=== PATIENT | female | born 1950 | race Hispanic/Latino ===

== ENCOUNTER 2017-02-25 15:12 | Emergency (ER) | payer MEDICARE, MEDICAID ==
[2017-02-25 15:46] VITALS: TEMP 97.9
--- NOTE | 2017-02-25 16:02 | RAD ---
KUB one view INDICATION: Right abdominal and flank pain IMPRESSION: Extensive stool throughout the colon suggesting constipation. Scattered small calcifications in the pelvis likely phleboliths and bowel related. No definitive ureteral calculus. No definite calculi over the kidneys. Bones are osteopenic. No evidence of mechanical bowel obstruction. Electronically signed by: Sulaiman Almonte MD 02/25/2017 4:00 PM CDT
[2017-02-25] MEDS ORDERED: MAGNESIUM HYDROXIDE 30 ML UD PO ONE (16:52)
[2017-02-25] MEDS ORDERED: SODIUM CHLORIDE 0.9% 1000ML 1,000 ML IVS ONE (17:09)
[2017-02-25 17:43] VITALS: O2SAT 97
--- NOTE | 2017-02-25 18:05 | ED.PDOC ---
History of Present Illness - General Chief Complaint: Abdominal Pain Stated Complaint: R flank pain Time Seen by Provider: 02/25/17 15:22 Source: patient Exam Limitations: no limitations - History of Present Illness Initial Comments: the patient is a 66-year-old female presenting to the emergency room secondary toright mid to upper abdominal painstarting this morning. It has been intermittent in nature. Mild nausea but no vomiting. No urinary symptoms. No flank pain. No chest pain. She has had a history of constipation. She has also had a history of renal insufficiency and has had a kidney stone before. The pain is not made worse significantly with palpation. It does come and go somewhat random. No radiation to the groin. No fevers. No frequency. No dysuria.of note, the pain is currently significantly less now than it was earlier today. Timing/Duration: unsure Severity: moderate Improving Factors: nothing Worsening Factors: nothing Associated Symptoms: loss of appetite Allergies/Adverse Reactions: Allergies NO KNOWN ALLERGY Allergy (Verified 02/25/17 15:34) Home Medications: Ambulatory Orders hydrALAZINE HCl [(None)] 50 mg PO DAILY 02/25/17 Review of Systems - Review of Systems Constitutional: States: no symptoms reported EENTM: States: no symptoms reported Respiratory: States: no symptoms reported Cardiology: States: no symptoms reported Gastrointestinal/Abdominal: States: constipation, nausea Genitourinary: States: no symptoms reported Musculoskeletal: States: no symptoms reported Skin: States: no symptoms reported Neurological: States: no symptoms reported Endocrine: States: no symptoms reported All other Systems: No Change from Baseline Past Medical History (General) - Patient Medical History Hx Stroke: No Hx Congestive Heart Failure: No Hx Hypertension: Yes Hx Diabetes: Yes Hx Renal Disease: Yes - 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 a medical pathology teacher in [place] Surgical History: other - Vaccination History Hx Influenza Vaccination: Yes - 2015 Hx Pneumococcal Vaccination: Yes - 2014 - Social History Hx Tobacco Use: No Hx Alcohol Use: No Family Medical History - Family History Mother Family History: No Known Living Status: Physical Exam - Physical Exam General Appearance: Alert, Comfortable, No apparent distress Eye Exam: bilateral normal Ears, Nose, Throat: hearing grossly normal, normal ENT inspection, normal pharynx Neck: full range of motion, supple Respiratory: lungs clear, normal breath sounds, no respiratory distress, no accessory muscle use Cardiovascular/Chest: normal peripheral pulses, regular rate, rhythm, no edema Peripheral Pulses: radial,right: 2+, radial,left: 2+, dorsalis pedis,right: 2+, dorsalis pedis,left: 2+ Gastrointestinal/Abdominal: non tender, soft Rectal Exam: deferred Back Exam: normal inspection, no CVA tenderness, no vertebral tenderness Extremity: normal range of motion, non-tender, normal inspection, no pedal edema Neurologic: flume maker II-XII nml as tested, alert, normal mood/affect, oriented x 3 Comments: Vital Signs - 24 hr 02/25/17 02/25/17 15:35 17:10 Temperature 97.9 F Pulse Rate [ 82 82 Left Radial] Respiratory 18 18 Rate Blood Pressure 149/82 149/77 [Left Arm] O2 Sat by Pulse 95 97 Oximetry Progress - Progress Progress: 02/25/17 18:06 the patient's a 66-year-old female presenting to the emergency room secondary to intermittent right-sided abdominal pain starting earlier today. Lab work actually looks reassuring in that the urine does not appear significantly consistent with a kidney stone. Her kidney function in comparison to her previous, as determined by contact with her medical pathology teacher office, appear to be close to baseline. Her sodium is lower than her normal sodium however. It appears that her abdominal pain is most likely due to constipation. She was given 1 dose of milk of magnesia here. She was additionally given 1 L of IV fluids to help decrease dehydration which should improve constipation and hopefully improve her sodium. Sodium was 127 today. sodium Does need to be repeated with her medical pathology teacher next week. Creatinine was 2.8 here today. BUN was 54. ER warnings were given for any significant worsening. I personally used a dietetic technician registered twice with this patient. - Results/Orders Results/Orders: 02/25/17 16:15 URINE CULTURE W/COLONY COUNT Stat 02/25/17 17:09 Sodium Chloride 0.9% 1000ML [Ns 1000 ml] 1,000 ml IVS ONCE Laboratory Results - last 24 hr 02/25/17 02/25/17 02/25/17 15:45 15:45 16:15 WBC 7.1 RBC 3.73 L Hgb 11.0 L Hct 32.6 L MCV 87.6 MCH 29.4 MCHC 33.7 RDW 12.5 Plt Count 193 MPV 10.2 Absolute Neuts (auto) 4.60 Absolute Lymphs (auto) 1.90 Absolute Monos (auto) 0.40 Absolute Eos (auto) 0.10 Absolute Basos (auto) 0.00 Neutrophils % 64.5 Lymphocytes % 27.1 Monocytes % 6.3 Eosinophils % 1.6 Basophils % 0.5 Sodium 127 L Potassium 3.6 Chloride 94 L Carbon Dioxide 22 Anion Gap 14.6 BUN 54 H Creatinine 2.87 H BUN/Creatinine Ratio 18.8 Random Glucose 153 H Serum Osmolality 273.0 L Calcium 8.9 Total Bilirubin 0.7 AST 31 ALT 24 Alkaline Phosphatase 74 Serum Total Protein 7.3 Albumin 3.9 Globulin 3.4 Albumin/Globulin Ratio 1.1 Urine Color Yellow Urine Appearance Clear Urine pH 6.0 Ur Specific [place] <= 1.005 Urine Protein 100 H Urine Glucose (UA) Negative Urine Ketones Negative Urine Blood Trace-lysed H Urine Nitrite Negative Urine Bilirubin Negative Urine Urobilinogen 0.2 Ur Leukocyte Esterase Small H Urine RBC 1-3 Urine WBC 1-3 Ur Epithelial Cells 0-1 Urine Bacteria 0 x-rays consistent with constipation. No definitive ureteral stones. No obstruction. Departure - Departure Clinical Impression: Hyponatremia Constipation Qualifiers: Constipation type: slow transit constipation Qualified Code(s): K59.01 - Slow transit constipation Disposition: Discharge to Home or Self Care Condition: Fair Departure Forms: ED Discharge - Pt. Copy, Patient Portal Self Enrollment Instructions: DI for Abdominal Pain-Adult Diet: diabetic diet Activity: increase activity as tolerated Home Medications: Ambulatory Orders hydrALAZINE HCl [(None)] 50 mg PO DAILY 02/25/17 Additional Instructions: the patient's a 66-year-old female presenting to the emergency room secondary to intermittent right-sided abdominal pain starting earlier today. Lab work actually looks reassuring in that the urine does not appear significantly consistent with a kidney stone. Her kidney function in comparison to her previous, as determined by contact with her medical pathology teacher office, appear to be close to baseline. Her sodium is lower than her normal sodium however. It appears that her abdominal pain is most likely due to constipation. She was given 1 dose of milk of magnesia here. She was additionally given 1 L of IV fluids to help decrease dehydration which should improve constipation and hopefully improve her sodium. Sodium was 127 today. sodium Does need to be repeated with her medical pathology teacher next week. Creatinine was 2.8 here today. BUN was 54. ER warnings were given for any significant worsening.
[2017-02-25 19:02] VITALS: BP 151/78
== END 2017-02-25 18:37 | disposition home or self-care (01) ==
LOC: ER 15:12
DX: E87.1 Hypo-osmolality and hyponatremia (principal); K59.01 Slow transit constipation; I10 Essential (primary) hypertension; E11.9 Type 2 diabetes mellitus without complications; N28.9 Disorder of kidney and ureter, unspecified
CPT/HCPCS: 36415; 74000; 80053; 81001; 85025; 87086; J7030

== ENCOUNTER 2017-04-20 12:05 | Emergency (ER) | payer MEDICARE, MEDICAID ==
[2017-04-20 12:28] VITALS: BP 135/68; TEMP 97.3; O2SAT 97
--- NOTE | 2017-04-20 12:51 | ED.PDOC ---
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 This occurred this morning and she describes it as a shade closing over her eye. No pain. Timing/Duration: abrupt Severity: severe EENT Location: eye (R) Prearrival Treatment: no prearrival treatment Improving Factors: nothing Worsening Factors: nothing Associated Symptoms: denies symptoms Allergies/Adverse Reactions: Allergies NO KNOWN ALLERGY Allergy (Verified 02/25/17 15:34) Home Medications: Ambulatory Orders hydrALAZINE HCl [(None)] 50 mg PO DAILY 02/25/17 Review of Systems - Review of Systems Constitutional: States: no symptoms reported EENTM: States: see HPI Respiratory: States: no symptoms reported Cardiology: States: no symptoms reported Neurological: States: no symptoms reported All other Systems: No Change from Baseline Past Medical History (General) - Patient Medical History Hx Stroke: No Hx Congestive Heart Failure: No Hx Hypertension: Yes Hx Diabetes: Yes Hx Renal Disease: Yes - 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 [place] Surgical History: no surgical history - Vaccination History Hx Influenza Vaccination: Yes Hx Pneumococcal Vaccination: No - Social History Hx Tobacco Use: No Hx Alcohol Use: No Family Medical History - Family History Mother Family History: No Known Living Status: Physical Exam - Physical Exam General Appearance: Alert, Comfortable, No apparent distress, Well Developed, Well Groomed, Well Hydrated, Well Nourished Eye Exam: right abnormal EOM - Pupils are equal but R is not responsive to light Neck: full range of motion, supple, normal inspection Cardiovascular/Respiratory: no respiratory distress Neurologic: returned goods 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 Winn @ [facility] - would like patient to go to his office now for evaluation. Patient is agreeable with plan. Departure - Departure Clinical Impression: Vision loss, right eye Time of Disposition: 12:53 Disposition: Discharge to Home or Self Care Condition: Serious Departure Forms: ED Discharge - Pt. Copy, Patient Portal Self Enrollment Instructions: DI for Visual Field Disturbances Diet: resume usual diet Activity: increase activity as tolerated Home Medications: Ambulatory Orders hydrALAZINE HCl [(None)] 50 mg PO DAILY 02/25/17 Additional Instructions: Follow up with Dr. Winn at [facility] NOW
== END 2017-04-20 13:04 | disposition home or self-care (01) ==
LOC: ER 12:05
DX: H54.61 Unqualified visual loss, right eye, normal vision left eye (principal); E11.9 Type 2 diabetes mellitus without complications; I10 Essential (primary) hypertension

== ENCOUNTER → 2017-05-13 | Outpatient (CLI) | payer MEDICARE, MEDICAID | END | disposition home or self-care (01) | LOC: LAB.O 08:30 | DX: N18.9 Chronic kidney disease, unspecified (principal); R80.9 Proteinuria, unspecified; E55.9 Vitamin D deficiency, unspecified; E11.22 Type 2 diabetes mellitus with diabetic chronic kidney disease; N28.1 Cyst of kidney, acquired; R79.89 Other specified abnormal findings of blood chemistry; D63.1 Anemia in chronic kidney disease; B35.1 Tinea unguium; M85.80 Other specified disorders of bone density and structure, unspecified site ==

== ENCOUNTER → 2017-10-14 | Outpatient (CLI) | payer MEDICARE, MEDICAID ==
--- NOTE | 2017-10-14 21:27 | CT ---
EXAM DESCRIPTION: Abdoment/Pelvis w/o Contrast CLINICAL HISTORY: 67 years, Female, RENAL CYST, HX OF CHRONIC KIDNEY DISEASE COMPARISON: None. TECHNIQUE: CT of the abdomen and pelvis is performed according to our non contrast protocol. FINDINGS: The lung bases are clear. Heart size is normal. Liver, spleen, and pancreas are unremarkable. Linear high density around the right kidney is seen extending along Gerota's fascia anteriorly. This could be calcification or possibly minimal acute hemorrhage. Chronic abnormality is thought more likely than an acute process. If this is minimal blood, no significant sized hematoma is present. No calcified renal stones on either side. Minimal strandy inflammatory changes around the right renal pelvis and proximal right ureter. No distal ureteral stone. Differential considerations for this appearance would include recent passage of a stone or renal infection. Clinical correlation recommended as to whether there has been previous surgery. Right kidney appears slightly deformed which could be postoperative or congenital with unusual shape and posterior orientation of the renal pelvis. Mild atrophy of the left kidney. The left kidney is otherwise unremarkable. Gallbladder is distended. No calcified stones in the gallbladder lumen. Common duct is prominent. Small bowel loops appear normal in caliber with normal wall thickness. There is no lymphadenopathy, inflammation, or free fluid observed. In the pelvis, the appendix is quite small. No inflammation around the cecum or terminal ileum or sigmoid colon. No stones in the distal ureters or bladder. Rectal wall thickness is normal for degree of distention. No free fluid or mass in the pelvis. The uterus appears partly calcified but otherwise unremarkable. No ovarian enlargement. No inguinal or lower pelvic adenopathy. IMPRESSION: Mild inflammatory changes around the right kidney with minimal hemorrhage or calcification. See above. This exam was performed according to our departmental dose-optimization program, which includes automated exposure control, adjustment of the mA and/or kV according to patient size and/or use of iterative reconstruction technique. Total DLP equals 1154.07 mGycm. Electronically signed by: Pramod Gore MD 10/14/2017 10:56 AM CDT
== END ==
LOC: CT 07:08
DX: N18.9 Chronic kidney disease, unspecified (principal); N28.1 Cyst of kidney, acquired